=== PATIENT | male | born 1945 | race Caucasian/White ===

== ENCOUNTER 2023-03-10 09:47 | Day surgery (SDC) | payer MEDICARE, BC ==
[~2023-03-10] VITALS: Ht 175.3 cm; Wt 99.8 kg
[~2023-03-10 09:47] MED LIST: ASPIRINCHW 81MG PO; ATORVASTATIN CA20 MG PO; COREG12.5 MG PO; CYMBALTA30 MG PO; EZETIMIBE10 MG PO; ISOSORB MONO20 MG PO; TAMSULOSIN HCL0.4 MG PO; ZYLOPRIM300 MG PO
[2023-03-10 11:43] VITALS: BP 124/76
== END 2023-03-10 11:42 | disposition home or self-care (01) ==
LOC: ENDO 09:47 → ORM 12:30
PROVIDERS: ATTEND Internal Medicine Gastroenterology
PROC: 0DJD8ZZ Inspection of Lower Intestinal Tract, Via Natural or Artificial Opening Endoscopic (ICD-10-PCS; principal; 2023-03-10)
DX: Z12.11 Encounter for screening for malignant neoplasm of colon (principal); K57.30 Diverticulosis of large intestine without perforation or abscess without bleeding; K64.8 Other hemorrhoids; I10 Essential (primary) hypertension; Z86.010 Personal history of colon polyps
CPT/HCPCS: G0105

== ENCOUNTER 2024-04-04 08:20 | Emergency (ER) | payer MEDICARE, BC ==
[~2024-04-04] VITALS: Ht 175.3 cm; Wt 95.2 kg
[~2024-04-04 08:20] MED LIST changes: +HYDROCO/APAP1 T10 PO
[2024-04-04] MEDS ORDERED: Diph, Acellular Pertussis, Tet 0.5 ML/VIAL (Tdap) SDV IM ONE (08:45)
[2024-04-04] MEDS ORDERED: SILVER SULFADIAZINE 50 GM/TUBE EA TOP ONE (08:45)
[2024-04-04] MEDS ORDERED: SILVADENE1 % EX (08:54)
[2024-04-04 09:26] VITALS: BP 140/64
== END 2024-04-04 09:47 | disposition home or self-care (01) ==
LOC: ED 08:20
PROC: 2W2RX4Z Dressing of Left Lower Leg using Bandage (ICD-10-PCS; principal; 2024-04-04)
PROC: 2W2QX4Z Dressing of Right Lower Leg using Bandage (ICD-10-PCS; 2024-04-04)
DX: T24.202A Burn of second degree of unspecified site of left lower limb, except ankle and foot, initial encounter (principal); T24.201A Burn of second degree of unspecified site of right lower limb, except ankle and foot, initial encounter; X03.0XXA Exposure to flames in controlled fire, not in building or structure, initial encounter